=== PATIENT | female | born 1985 | race Caucasian/White ===

== ENCOUNTER 2018-07-01 16:36 | Emergency (ER) | payer OTHER ==
[2018-07-01 16:45] VITALS: BP 155/105; PULSE 125; RESP 18; TEMP 98.1
[2018-07-01] MEDS ORDERED: HYDROcodone/APAP 5-325MG 1 EACH TAB PO STA (17:16)
--- NOTE | 2018-07-01 17:24 | XR ---
EXAMINATION TYPE: XR forearm LT DATE OF EXAM: 07/01/2018 COMPARISON: NONE HISTORY: Fracture follow-up. Pain TECHNIQUE: 2 views FINDINGS: There is transverse fracture of the distal radius 1.5 cm from the wrist joint. There is no displacement. Distal ulna is intact. Elbow joint is intact. IMPRESSION: Acute nondisplaced transverse fracture distal radius.
--- NOTE | 2018-07-01 17:55 | ED ---
General Adult HPI - General Chief complaint: Extremity Injury, Upper Stated complaint: Broken L Arm Time Seen by Provider: 07/01/18 16:57 Source: patient, RN notes reviewed, old records reviewed Mode of arrival: ambulatory Limitations: no limitations - History of Present Illness Initial comments: 33-year-old female patient with no pertinent past month history presents to ED with left arm pain. Yesterday while rollerskating, patient fell backwards onto her left outstretched arm causing pain. Patient did not sustain any trauma to head or neck or back at that time. Patient was seen at [facility] emergency room and diagnosed with a distal radius fracture in her left arm. Patient was splinted and prescribed one day pain medication and instructed to follow up with orthopedics. Patient presents today because she continues to have pain in her wrist and was only prescribed one day of pain medication. Patient denies any new symptoms. Patient has splint on in exam room. Patient denies all other complaints. Systemic: Pt denies fatigue, myalgia, fever/chills, rash. Pt denies weakness, night sweats, weight loss. Neuro: Pt denies headache, visual disturbances, syncope or pre-syncope. HEENT: Pt denies ocular discharge or irritation, otalgia, rhinorrhea, pharyngitis or notable lymphadenopathy. Cardiopulmonary: Pt denies chest pain, SOB, heart palpitations, dyspnea on exertion. Abdominal/GI: Pt denies abdominal pain, n/v/d. : Pt denies dysuria, burning w/ urination, frequency/urgency. Denies new onset urinary or bowel incontinence. Neuro: Pt denies new onset weakness, paresthesias. - Related Data Home Medications Medication Instructions Recorded Confirmed Ibuprofen [Motrin] 800 mg PO TID PRN 01/08/15 07/01/18 Ranitidine HCl [Zantac] 150 mg PO BID PRN 01/08/15 07/01/18 Previous Rx's Medication Instructions Recorded Hydrocodone/Acetaminophen [Fowler 1 each PO Q6HR PRN 2 Days #8 tab 07/01/18 5-325] Allergies Allergy/AdvReac Type Severity Reaction Status Date / Time amoxicillin Allergy Rash/Hives Verified 07/01/18 17:07 clarithromycin [From Biaxin] Allergy Rash/Hives Verified 07/01/18 17:07 codeine Allergy Unknown Verified 07/01/18 17:07 Penicillins Allergy Rash/Hives Verified 07/01/18 17:07 sulfamethoxazole Allergy Unknown Verified 07/01/18 17:07 [From Bactrim] trimethoprim [From Bactrim] Allergy Unknown Verified 07/01/18 17:07 Review of Systems ROS Statement: Those systems with pertinent positive or pertinent negative responses have been documented in the HPI. ROS Other: All systems not noted in ROS Statement are negative. Past Medical History Past Medical History: GERD/Reflux Additional Past Medical History / Comment(s): hx. kidney stones History of Any Multi-Drug Resistant Organisms: None Reported Past Surgical History: Uterine Ablation Additional Past Surgical History / Comment(s): D & C, left kidney surg. for ureteral reflux Past Anesthesia/Blood Transfusion Reactions: No Reported Reaction Past Psychological History: No Psychological Hx Reported Smoking Status: Current every day smoker - Past Family History Mother Family Medical History: No Reported History General Exam - General Exam Comments Initial Comments: Constitutional: NAD, AOX3, Pt has pleasant affect. HEENT: NC/AT, trachea midline, neck supple, no lymphadenopathy. Posterior pharynx non erythematous, without exudates. External ears appear normal, without discharge. Mucous membranes moist. Eyes PERRLA, EOM intact. There is no scleral icterus. No pallor noted. Cardiopulmonary: RRR, no murmurs, rubs or gallops, no JVD noted. Lungs CTAB in anterior and posterior barrios. No peripheral edema. Heart rate 72 during exam. Abdominal exam: Abdomen soft and non-distended. Abdomen non-tender to palpation in all 4 quadrants. Bowel sounds active in LLQ. No hepatosplenomegaly. No ecchymosis Neuro: CN II-XII grossly intact. No nuchal rigidity. MSK: Patient has mild amount of tenderness to distal radius left arm. Patient has full range of motion of fingers, sensation intact. Radial pulse +2. Patient able to wiggle fingers. No posterior calf tenderness bilaterally, homans sign negative bilaterally. Posterior tibialis and radial pulse +2 bilaterally. Sensation intact in upper and lower extremities. Full active ROM in upper and lower extremities, 5/5 stregnth. Limitations: no limitations Course Vital Signs 07/01/18 16:41 Temperature 98.1 F Pulse Rate 125 H Respiratory 18 Rate Blood Pressure 155/105 O2 Sat by Pulse 100 Oximetry Medical Decision Making - Medical Decision Making 33-year-old female patient with no pertinent past month history presents to ED with left arm pain. Yesterday while rollerskating, patient fell backwards onto her left outstretched arm causing pain. Patient did not sustain any trauma to head or neck or back at that time. Patient was seen at [facility] emergency room and diagnosed with a distal radius fracture in her left arm. Pt VSS, HR 72 in exam room. Physical exam displayed: Patient has mild amount of tenderness to distal radius left arm. Patient has full range of motion of fingers, sensation intact. Radial pulse +2. Patient able to wiggle fingers. Pt placed in thumb spica splint, neurovascularly intact before and after splint placement. Plain film of distal radius displayed a acute nondisplaced transverse fracture of distal radius. Patient MAPS was checked. Pt was indeed prescribed one day of narcotic pain medication from ED [facility]. Pt rx 2 days of norco. Talk opiates form filled out. Patient to follow up with orthopedic consult tomorrow. Patient to return to ED if new signs or symptoms develop or condition worsens in any way. Case discussed in depth with Dr. [place]ellin. Disposition Clinical Impression: Distal radius fracture Disposition: HOME SELF-CARE Condition: Stable Instructions (If sedation given, give patient instructions): Arm Fracture in Adults (ED) Additional Instructions: Patient to adhere to previously discussed treatment plan and will take medication(s) as directed. Patient to follow up with PCP in 1-2 days. Patient to return to ED if symptoms do not improve. Prescriptions: Hydrocodone/Acetaminophen [Fowler 5-325] 1 each PO Q6HR PRN 2 Days #8 tab PRN Reason: Pain Is patient prescribed a controlled substance at d/c from ED?: Yes When asked, does pt state using other controlled substances?: No If prescribed controlled substance>3 days was MAPS reviewed?: Prescribed <3 Days If opioid is for acute pain is fill amount 7 days or less?: Yes If Rx opioid, was Start Talking consent form obtained?: Yes Referrals: Ken Calhoun MD [Primary Care Provider] - 1-2 days Jim Smart MD [Medical Doctor] - 1-2 days Kike Douglas DO [Medical Doctor] - 1-2 days Time of Disposition: 17:55
== END 2018-07-01 18:20 | disposition home or self-care (01) ==
LOC: EC 16:36
DX: S52.502A Unspecified fracture of the lower end of left radius, initial encounter for closed fracture (principal); F17.200 Nicotine dependence, unspecified, uncomplicated; Z88.0 Allergy status to penicillin; Z88.1 Allergy status to other antibiotic agents; Z88.2 Allergy status to sulfonamides; Z88.5 Allergy status to narcotic agent; W19.XXXA Unspecified fall, initial encounter; Y93.51 Activity, roller skating (inline) and skateboarding
CPT/HCPCS: 29125; 99284